=== PATIENT | female | born 1990 | race American Indian/Alaskan Native ===

== ENCOUNTER 2019-09-11 11:37 | Emergency (ER) | payer SELFPAY ==
[2019-09-11 12:00] VITALS: BP 126/63
--- NOTE | 2019-09-11 12:04 | Event Note ---
ED Screening Note ED Screening Note: THINKS SHE IS NAUSEA LMP 07/22 THIS WOULD BE PREG 2 NO VAG BLEED This initial assessment/diagnostic orders/clinical plan/treatment(s) is/are subject to change based on patients health status, clinical progression and re- assessment by fellow clinical providers in the ED. Further treatment and workup at subsequent clinical providers discretion. Patient/guardian urged not to elope from the ED as their condition may be serious if not clinically assessed and managed. Initial orders include: UA/PREG REFUSED MSE TO OBGYN
[2019-09-11 12:48] LABS: HCG Qualitative,Urine Positive (Negative)
[2019-09-11 12:51] LABS: Bilirubin,Urine NEG (Negative); Blood,Urine NEG (Negative); Color,Urine Yellow (Yellow); Protein,Urine <15 mg/dL mg/dL (Negative); RBC,Urine < 1.0 /HPF (0.0-6.0); Urobilinogen,Urine < 2.0 mg/dL (<2.0); WBC,Urine < 1.0 /HPF (0.0-6.0)
--- NOTE | 2019-09-11 13:05 | Emergency Department Report ---
ED Dysuria HPI - HPI Chief Complaint: Nausea/Vomiting/Diarrhea Stated Complaint: VOMITING Time Seen by Provider: 09/11/19 12:02 Severity: Mild Symptoms: Dysuria: No, Frequency: No, Suprapubic Pain: No, Flank Pain: No, Fev er: No, Hematuria: No, Abdominal Pain: No, Previous UTI's: No Other History: 29 yo AA female with co pos home preg test. She has no medicaid. Did not see ob. G2. no vag bleeding. usual d/c. pos reports vomiting. ED Review of Systems ROS: Stated complaint: VOMITING Other details as noted in HPI Comment: All other systems reviewed and negative ED Past Medical Hx - Past Medical History Previous Medical History?: Yes Additional medical history: gestational diabetes - Surgical History Past Surgical History?: Yes Additional Surgical History: oral surgery - Family History Family history: no significant - Social History Smoking Status: Never Smoker Substance Use Type: None - Medications Home Medications: Home Medications Medication Instructions Recorded Confirmed Last Taken Type Ondansetron [Zofran Odt] 4 mg PO Q8HR PRN #10 tab.rapdis 09/11/19 Unknown Rx Prenat Vit 17/Iron/Folic/Om3,6 1 each PO DAILY #30 capsule 09/11/19 Unknown Rx [Elite-Ob 400 Capsule] Dysuria Exam - Exam General: Vital signs noted. No distress. Alert and acting appropriately. Exam: Yes Moist Mucous Membranes, No CVA Tenderness, No Abdominal Tenderness, No Rigidity or Guarding Labs: Lab Results 09/11/19 Range/Units 12:12 Urine Color Yellow (Yellow) Urine Turbidity Clear (Clear) Urine pH 7.0 (5.0-7.0) Ur Specific [place] 1.011 (1.003-1.030) Urine Protein <15 mg/dl (Negative) mg/dL Urine Glucose (UA) Neg (Negative) mg/dL Urine Ketones Neg (Negative) mg/dL Urine Blood Neg (Negative) Urine Nitrite Neg (Negative) Ur Reducing Substances Not Reportable Urine Bilirubin Neg (Negative) Urine Ictotest Not Reportable Urine Urobilinogen < 2.0 (<2.0) mg/dL Ur Leukocyte Esterase Neg (Negative) Urine WBC (Auto) < 1.0 (0.0-6.0) /HPF Urine RBC (Auto) < 1.0 (0.0-6.0) /HPF U Epithel Cells (Auto) 5.0 (0-13.0) /HPF Urine HCG, Qual Positive A (Negative) ED Course Vital Signs 09/11/19 09/11/19 11:55 12:01 Temperature 98.5 F 98.5 F Pulse Rate 78 76 Respiratory 17 16 Rate Blood Pressure 126/63 126/63 O2 Sat by Pulse 97 97 Oximetry ED Medical Decision Making - Medical Decision Making Lab Results 09/11/19 Range/Units 12:12 Urine Color Yellow (Yellow) Urine Turbidity Clear (Clear) Urine pH 7.0 (5.0-7.0) Ur Specific [place] 1.011 (1.003-1.030) Urine Protein <15 mg/dl (Negative) mg/dL Urine Glucose (UA) Neg (Negative) mg/dL Urine Ketones Neg (Negative) mg/dL Urine Blood Neg (Negative) Urine Nitrite Neg (Negative) Ur Reducing Substances Not Reportable Urine Bilirubin Neg (Negative) Urine Ictotest Not Reportable Urine Urobilinogen < 2.0 (<2.0) mg/dL Ur Leukocyte Esterase Neg (Negative) Urine WBC (Auto) < 1.0 (0.0-6.0) /HPF Urine RBC (Auto) < 1.0 (0.0-6.0) /HPF U Epithel Cells (Auto) 5.0 (0-13.0) /HPF Urine HCG, Qual Positive A (Negative) LMP 07/22 G2 NO VAG BLEED OR DC NO ABD PAIN REPORTS OF VOMITING ABD EXAM WNL NO BACK PAIN NON ILL NON TOXIC APPEARING NO FEVER NO DYSURIA IN TRIAGE AREA 2 H NO VOMITING POS PREG TEST REQUESTING ULTRASOUND TO DATE PREG. TOLD HER WE DO NOT DO THESE IN ER. PT UPSET. HER SO VERBALIZES UNDERSTANDING AND WILL TAKE PT TO OBGYN FOR ROUTINE CARE DC HOME WITH OBGYN REFERRAL AND RX FOR ZOFRAN AND PRENTAL Vital Signs 09/11/19 09/11/19 11:55 12:01 Temperature 98.5 F 98.5 F Pulse Rate 78 76 Respiratory 17 16 Rate Blood Pressure 126/63 126/63 O2 Sat by Pulse 97 97 Oximetry - Differential Diagnosis ro preg Critical care attestation.: If time is entered above; I have spent that time in minutes in the direct care of this critically ill patient, excluding procedure time. ED Disposition Clinical Impression: Disposition: DC-01 TO HOME OR SELFCARE Is pt being admited?: No Does the pt Need Aspirin: No Condition: Stable Instructions: (ED) Additional Instructions: avoid drugs or alcohol safe sex pos preg test today urine without infection today follow up with obgyn referral below meds as ordered Prescriptions: Prenat Vit 17/Iron/Folic/Om3,6 [Elite-Ob 400 Capsule] 1 each PO DAILY #30 capsule Ondansetron [Zofran Odt] 4 mg PO Q8HR PRN #10 tab.rapdis PRN Reason: Vomiting Referrals: REKHA HOWARD MD [Staff Physician] - 3-5 Days [facility] МАРИНА POSEY MD [Staff Physician] - 3-5 Days Time of Disposition: 13:02
== END 2019-09-11 13:15 | disposition home or self-care (01) ==
LOC: ED 11:37
DX: O21.8 Other vomiting complicating pregnancy (principal); Z98.890 Other specified postprocedural states; Z79.899 Other long term (current) drug therapy; Z3A.01 Less than 8 weeks gestation of pregnancy
CPT/HCPCS: 81001; 81025